=== PATIENT | male | born 1990 | race Two or more races ===

== ENCOUNTER 2022-10-08 19:53 | Emergency (ER) | payer MEDICAID ==
[~2022-10-08] VITALS: Ht 167.6 cm; Wt 63.0 kg
[2022-10-08] MEDS ORDERED: SODIUM CHLORIDE 0.9% 2,000 ML IV ONE (20:30)
[2022-10-08] MEDS ORDERED: IBUPROFEN 600 MG TAB PO ONE (20:30)
[2022-10-08] MEDS ORDERED: ACETAMINOPHEN 325 MG TAB PO ONE (20:30)
[2022-10-08 20:57] LABS: Basophils # (auto) 0.1 10 ^3/uL (0-0.2); Basophils % (auto) 0.5 % (0.0-2.0); Eosinophils # (auto) 0 10 ^3/uL (0-0.8); Eosinophils % (auto) 0.1 % (0.0-7.0); Hematocrit 45.1 % (41.0-53.0); Hemoglobin 15.3 g/dL (13.5-17.5); Lymphocytes # (auto) 1.3 10 ^3/uL (0.4-5.4); Lymphocytes % (auto) 8.8 % (10.0-50.0); Mean Corpuscular Hemoglobin 29.5 pg (28.0-32.0); Mean Corpuscular Volume 86.5 fL (80.0-100.0); Monocytes # (auto) 1.2 10 ^3/uL (0-1.3); Monocytes % (auto) 8.3 % (0.0-12.0); Neutrophils # (auto) 12.2 10 ^3/uL (1.6-8.6); Neutrophils % (auto) 82.3 % (37.0-80.0); Red Blood Cells 5.21 10^6/uL (4.5-5.90); Red Cell Distribution Width 13.8 % (11.8-14.3); White Blood Cell 14.8 10^3/uL (4.4-10.8)
[2022-10-08 21:00] VITALS: PULSE 119; RESP 20; O2SAT 97
[2022-10-08 21:01] LABS: Urine Bacteria FEW /hpf (None Seen); Urine Blood Negative /uL (Negative); Urine Clarity HAZY (Clear); Urine Color Yellow (Yellow); Urine Mucus FEW (None Seen); Urine Protein, UAD 1+ (Negative); Urine Specific Gravity 1.033 (1.001-1.035); Urine WBC 43 /hpf (0 - 3); Urine pH 8.5 (5.0-8.0)
[2022-10-08] MEDS ORDERED: ONDANSETRON HCL 4 MG/2 ML VIAL ONE (21:08)
[2022-10-08 21:13] LABS: Alanine Aminotransferase 15 U/L (7-40); Albumin 4.7 g/dL (3.2-4.8); Alkaline Phosphatase 79 U/L (46-116); Anion Gap 5.9 (5-15); Aspartate Aminotransferase 9 U/L (13-40); BUN/Creatinine Ratio 8.7 (10.0-20.0); Bilirubin, Total 0.8 mg/dL (0.2-1.0); Blood Urea Nitrogen 8 mg/dL (9-23); Calcium 9.3 mg/dL (8.7-10.4); Carbon Dioxide 26.1 mmol/L (20-30); Chloride 104 mmol/L (98-107); Glucose 134 mg/dL (74-106); Potassium 3.6 mmol/L (3.5-5.1); Sodium 136 mmol/L (136-145); Total Protein 7.7 g/dL (5.7-8.2)
[2022-10-08] MEDS ORDERED: ONDANSETRON HCL 4 MG/2 ML VIAL IV ONE (21:15)
[2022-10-08] MEDS ORDERED: CEFTRIAXONE SODIUM 2 GM in D5W 5% 100 ML IV ONE (22:15)
[2022-10-08] MEDS ORDERED: cefTRIAXone 1GM/50ML D5W 100 ML IV ONE (23:00)
[2022-10-08 23:55] LABS: COVID19 ANTIGEN SOFIA FIA NEGATIVE (NEGATIVE)
[2022-10-09] MEDS ORDERED: PHEN-1045 PO (00:38)
[2022-10-09] MEDS ORDERED: ZOFR4T PO (00:38)
[2022-10-09] MEDS ORDERED: IBU600T PO (00:38)
[2022-10-09] MEDS ORDERED: CEPH500C PO (00:38)
[2022-10-09] MEDS ORDERED: METR-344 PO (00:40)
[2022-10-09] MEDS ORDERED: CIPR-173 PO (00:40)
[2022-10-09 01:05] VITALS: BP 121/86; PULSE 115; RESP 19; O2SAT 97
[2022-10-09 01:09] VITALS: TEMP 100.2
[2022-10-09] MEDS ORDERED: ACETAMINOPHEN 325 MG TAB PO ONE (01:15)
== END 2022-10-09 01:16 | disposition home or self-care (01) ==
LOC: ER 19:53
DX: R50.9 Fever, unspecified (principal); N39.0 Urinary tract infection, site not specified; E86.0 Dehydration; K52.9 Noninfective gastroenteritis and colitis, unspecified; Z20.822 Contact with and (suspected) exposure to COVID-19
CPT/HCPCS: 36415; 71045; 74176; 80053; 81001; 83605; 85025; 87040; 87086; 87088; 87186; 87426; 96361; 96365; 96375; 99285; J0696; J2405; J7030; J7060

== ENCOUNTER 2022-10-09 13:21 | Emergency (ER) | payer MEDICAID ==
[~2022-10-09] VITALS: Ht 167.6 cm; Wt 64.0 kg
[~2022-10-09 13:21] MED LIST: CEPH500C PO; CIPR-173 PO; IBU600T PO; METR-344 PO; PHEN-1045 PO; ZOFR4T PO
[2022-10-09 15:04] VITALS: BP 114/72; PULSE 89; RESP 19; TEMP 98.6; O2SAT 96
== END 2022-10-09 16:15 | disposition home or self-care (01) ==
LOC: ER 13:21
DX: K52.9 Noninfective gastroenteritis and colitis, unspecified (principal); N39.0 Urinary tract infection, site not specified; Z79.01 Long term (current) use of anticoagulants; Z86.718 Personal history of other venous thrombosis and embolism; Z79.1 Long term (current) use of non-steroidal anti-inflammatories (NSAID); Z79.2 Long term (current) use of antibiotics; Z79.899 Other long term (current) drug therapy